=== PATIENT | female | born 1980 | race Caucasian/White ===

== ENCOUNTER 2017-04-25 07:38 | Emergency (ER) | payer OTHER ==
[~2017-04-25 07:38] MED LIST: LORTAB 5/500 TA1 TA2 PO; NO MEDICATIONS; TOPROL XL50 MG PO; TRILEPTAL300 MG PO; ZOFRAN ODT4 MG PO
[2017-04-25 08:53] LABS: MICRO INDICATED? NO; URINE APPEARANCE SL HAZY; URINE BILIRUBIN NEG (NEG); URINE BLOOD NEG (NEG); URINE COLOR YELLOW; URINE GLUCOSE NEG (NORM); URINE KETONE NEG (NEG); URINE LEUKOCYTE ESTERASE NEG (NEG); URINE NITRATE NEG (NEG); URINE PROTEIN NEG (NEG); URINE SOURCE CLEAN CATCH; URINE UROBILINOGEN 0.2 MG/DL (NORM)
== END 2017-04-25 10:06 | disposition home or self-care (01) ==
LOC: SED 07:38
PROVIDERS: Emergency Medicine
DX: K29.00 Acute gastritis without bleeding (principal); R07.9 Chest pain, unspecified; R56.9 Unspecified convulsions; F17.200 Nicotine dependence, unspecified, uncomplicated; I34.1 Nonrheumatic mitral (valve) prolapse; Z98.890 Other specified postprocedural states
CPT/HCPCS: 81003; 84703; 96361; 96374; 96375; 99284; J1170; J2405